=== PATIENT | female | born 1990 ===

== ENCOUNTER 2018-01-28 03:31 | Inpatient (IN) | payer OTHER ==
[~2018-01-28] VITALS: Ht 147.3 cm; Wt 64.0 kg
[2018-01-28 04:21] LABS: ABSOLUTE BASOPHIL COUNT 0 /CUMM (0.0-0.2); ABSOLUTE EOSINOPHIL COUNT 0.1 /CUMM (0.0-0.7); ABSOLUTE GRANULOCYTE CT 5.4 /CUMM (1.4-6.5); ABSOLUTE LYMPH COUNT 2.1 /CUMM (1.2-3.4); ABSOLUTE MONOCYTE COUNT 0.6 /CUMM (0.10-0.60); BASOPHIL % 0.2 % (0.0-2.0); EOSINOPHIL % 0.8 % (0-5); GRANULOCYTE % 66.2 % (42.2-75.2); HEMATOCRIT 34.9 % (37-47); MEAN CORPUSCULAR HGB 27.7 PG (27.0-31.0); MEAN CORPUSCULAR HGB CONC 32.6 G/DL (33.0-37.0); MEAN CORPUSCULAR VOLUME 84.9 FL (81.0-99.0); MEAN PLATELET VOLUME 10.6 FL (7.4-10.4); PLATELET COUNT 265 /CUMM (130-400); RED BLOOD CELL CT 4.11 /CUMM (4.20-5.40); WHITE BLOOD CELL COUNT 8.1 /CUMM (4.8-10.8)
--- NOTE | 2018-01-28 08:34 | Operative Report ---
Operative/Inv Procedure Report Surgery Date: 01/28/18 Name of Procedure: Repeat low transverse section Pre-Operative Diagnosis: Patient's desire for repeat patient in labor Post-Operative Diagnosis: Intrauterine at term polyhydramnios Estimated Blood Loss: 400 Surgeon/Crystal Calibrator: Mikael ARCHULETA,Parag Vaca MD Anesthesia: block Operative/Procedure Note Note: The patient was taken to the operating room for repeat low transverse section a Hill catheter was placed in the bladder heart rates are 1 44 bpm in the left lower quadrant the abdomen was prepped the patient was placed in the left lateral tilt. The patient was grounded after checking for the adequacy of anesthesia a Pfannenstiel incision was made over the old incision. Incision was carried down sharply to the fascia which was incised in the midline sharply the incision was carried out laterally sharply. The fascia was then divided from the underlying rectus muscles in the superior and inferior direction sharply the rectus muscle bundles were divided in the midline sharply the peritoneum was entered well above the dome of the bladder in the midline sharply. The uterus was checked for any adhesions and there were none a bladder flap was created on the lower uterine segment. The lower uterine segment was entered in the midline bluntly and the incision carried out laterally bluntly. The infant was delivered from the vertex position through clear amniotic fluid the favian-pharynx was bulb suction and the cord was doubly clamped and cut the was handed to the pediatric attendant. The placenta was manually extracted the interior of the uterus was wiped clean with wet laps the uterus was externalized. The uterine incision was closed in 2 layers the first a running locking stitch and the second an imbricating over the first 0 Polysorb sutures were. The abdominal/peritoneal cavity was irrigated copiously the uterus was returned to its normal anatomical position the incision was once again checked for hemostasis which was judged to be excellent the parietal peritoneum was reapproximated in simple running fashion of 0 Polysorb suture. The fascia was reapproximated with 2 simple running 0 Polysorb sutures overlapping in the midline. Nikita's fascia was reapproximated with a 3-0 undyed Polysorb suture in a simple running fashion the skin was closed with ted. Sponge instrument and needle counts were correct 3 estimated blood loss was 400 mL there were no complications no drains left at the end of the procedure was a Hill catheter to the bladder.
[2018-01-29 07:11] LABS: ABSOLUTE BASOPHIL COUNT 0 /CUMM (0.0-0.2); ABSOLUTE EOSINOPHIL COUNT 0.1 /CUMM (0.0-0.7); ABSOLUTE GRANULOCYTE CT 7.5 /CUMM (1.4-6.5); ABSOLUTE LYMPH COUNT 1.5 /CUMM (1.2-3.4); ABSOLUTE MONOCYTE COUNT 0.7 /CUMM (0.10-0.60); BASOPHIL % 0.3 % (0.0-2.0); EOSINOPHIL % 0.6 % (0-5); GRANULOCYTE % 76.8 % (42.2-75.2); MEAN CORPUSCULAR HGB 28.3 PG (27.0-31.0); MEAN CORPUSCULAR HGB CONC 32.8 G/DL (33.0-37.0); MEAN CORPUSCULAR VOLUME 86.2 FL (81.0-99.0); MEAN PLATELET VOLUME 10.2 FL (7.4-10.4); PLATELET COUNT 221 /CUMM (130-400); RBC DISTRIBUTION WIDTH 20.5 % (11.5-14.5); RED BLOOD CELL CT 3.71 /CUMM (4.20-5.40); WHITE BLOOD CELL COUNT 9.8 /CUMM (4.8-10.8)
--- NOTE | 2018-01-29 11:53 | PN- OBGYN ---
Surgical Brief Attending Note Brief Attending Note: pt feeling better today. amb / void / jennifer po. no flatus. no n/v. pain moderately well controlled. +bf afeb, v/ss nad abd soft nt ff inc c/d/i marva min lochia ext nt no ed hct 34-->32 pod 1 s/p rpt c/s, doing well -pain mgmt -colace, mylecon -enc amb -routine pop care
--- NOTE | 2018-01-30 09:03 | PN- OBGYN ---
Surgical Brief Attending Note Brief Attending Note: POD#2 pt is , no complaints, tolerate diet, void witout difficulties. fllatus (+) PE: VSS CV RRR, Lungs CTA b/L Abdomen: soft, mild tender at insicion site, uterus firm, fundus below umbilicus. incision ted in place, D/C/I ext: DCT (-) A/P: 27yo, s/p RLTCS, POD#2 1. encourage ambulation and 2.RT PP care
[2018-01-31 00:49] VITALS: BP 132/75
[2018-01-31] MEDS ORDERED: IBUPROFEN800 M1 PO (08:58)
[2018-01-31] MEDS ORDERED: PERCOCET 5-3251 EACH PO (08:58)
--- NOTE | 2018-01-31 09:05 | Surgical Discharge Summary ---
Visit Information Visit Dates Admission Date: 01/28/18 Discharge Date: 01/31/2018 History of Present Illness Chief Complaint: Repeat in labor Medical History Isolation History: Standard Surgical History Pertinent Surgical History: Psychosocial History What is Your Primary Language? Indonesian Review of Systems: Patient denies nausea, vomiting, diarrhea, constipation, fevers, or chills. Physical Exam: vital signs are stable she's afebrile Abdomen soft fundus firm incision clean and dry lochia serosanguineous extremities no edema lungs clear heart regular rate and Hospital Course Course Attending Physician: Mikael ARCHULETA,Chaka Farah Primary Care Physician: Dariusz ARCHULETA,Holden Hospital Course: The patient underwent a repeat section with no complications. By postoperative day #1 the Hill catheter was discontinued the patient was ambulating she was started on a clear liquid diet and was being toward well baby care as well as nursing. By postoperative day #2 the patient was tolerating a regular diet therefore her intravenous was discontinued. She was voiding well her incision was clean and dry she was demonstrating good knowledge of the incision care. Therefore she was discharged home on postoperative day #3 Allergies: Coded Allergies: No Known Allergies (01/28/18) Disposition Summary Disposition Principal Diagnosis: Repeat section Additional Diagnosis: Polyhydramnios Discharge Disposition: home or self care Discharge Instructions General Discharge Information Code Status: Full Code Patient's Diet: Regular Patient's Activity: No heavy lifting pelvic rest Follow-Up Instructions/Appts: Call immediately for any fevers chills abdominal pain or leaking from the wound call for any headaches visual changes or epigastric pain follow up in the office in 1 week Medications at Discharge Discharge Medications: Start taking the following new medications: Ibuprofen (Ibuprofen) 800 MG TABLET 800 Milligram ORAL EVERY SIX HOURS NEEDED as needed for UTERINE CRAMPING Qty = 90 No Refills Oxycodone HCl/Acetaminophen (Percocet 5-325 MG Tablet) 5 MG-325 MG TABLET 1 Tablet ORAL EVERY 4 HOURS NEEDED as needed for PAIN SCALE 4-6 (MODERATE ) Qty = 30 No Refills
== END 2018-01-31 11:39 | DRG 765 ==
LOC: CBCO 03:31 → GNO 05:00
PROVIDERS: Obstetrics & Gynecology
PROC: 10D00Z1 Extraction of Products of Conception, Low, Open Approach (ICD-10-PCS; principal; 2018-01-28)
DX: O34.211 Maternal care for low transverse scar from previous cesarean delivery (principal); O40.3XX0 Polyhydramnios, third trimester, not applicable or unspecified; N85.8 Other specified noninflammatory disorders of uterus; Z37.0 Single live birth; Z3A.38 38 weeks gestation of pregnancy; O77.0 Labor and delivery complicated by meconium in amniotic fluid
CPT/HCPCS: GNOS; 81001; 87086; J0690; J1885; J7120